=== PATIENT | female | born 1995 | race Caucasian/White ===

== ENCOUNTER → 2016-09-25 | Outpatient (CLI) | payer MEDICAID ==
[~2016-09-25] MED LIST: DERMOPLAST SPRA56 GM TP; LAN-O-SOOTHE7 GM TP; PRENATAL VIT1 TAB PO; TYLENOL EXTRA500 M1 PO
== END | disposition home or self-care (01) ==
LOC: RAD.S 16:20
DX: Z36 Encounter for antenatal screening of mother (principal); Z3A.20 20 weeks gestation of pregnancy

== ENCOUNTER 2016-11-23 00:08 | Emergency (ER) | payer MEDICAID ==
--- NOTE | 2016-11-23 03:36 | ER ---
ADMIT: 11/23/2016 RM/LOC: ER [facility] MR#: [id number] [facility] [id number] DORETHA VARGHESE Janna KISHORE CASTELLON [address] [place] [address] Emergency Room Report SEX: F AGE: 21 : 1995 DATE: 11/23/2016 The patient is a 21-year-old 1, para 0, last menstrual period 05/03, complains of epigastric abdominal pain associated with eructations. Took two Tums without improvement. Exam remarkable for acutely uncomfortable, obviously female. heart tones 150. Tender epigastrium with no uterine contractions palpated. The patient received GI cocktail and Zofran 8 mg ODT with complete relief of symptoms. Recommended liquid antacids 15-30 mL q.i.d. p.r.n., frequent small meals, nothing 4 hours before going to bed. Follow up Dr. Ewing as scheduled next week. Mario Perea MD/ katelin JOB #: [id number] CC: Mario Perea MD, Attending Physician Rima Ewing MD, Family Physician Rima Ewing MD
[2017-02-10] MEDS ORDERED: LAN-O-SOOTHE7 GM TP (18:10)
[2017-02-10] MEDS ORDERED: DERMOPLAST SPRA56 GM TP (18:10)
[2017-02-10] MEDS ORDERED: PRENATAL VIT1 TAB PO (18:10)
[2017-02-10] MEDS ORDERED: TYLENOL EXTRA500 M1 PO (18:10)
== END 2016-11-23 00:50 | disposition home or self-care (01) ==
LOC: ER 00:08
DX: O99.613 Diseases of the digestive system complicating pregnancy, third trimester (principal); K21.9 Gastro-esophageal reflux disease without esophagitis; Z90.49 Acquired absence of other specified parts of digestive tract; Z88.6 Allergy status to analgesic agent

== ENCOUNTER 2017-01-12 17:00 | Outpatient (CLI) | payer MEDICAID ==
[2017-02-10] MEDS ORDERED: LAN-O-SOOTHE7 GM TP (18:10)
[2017-02-10] MEDS ORDERED: DERMOPLAST SPRA56 GM TP (18:10)
[2017-02-10] MEDS ORDERED: PRENATAL VIT1 TAB PO (18:10)
[2017-02-10] MEDS ORDERED: TYLENOL EXTRA500 M1 PO (18:10)
== END 2017-01-12 21:05 | disposition home or self-care (01) ==
LOC: 2LDRP 17:00 → BC 17:00
DX: O47.03 False labor before 37 completed weeks of gestation, third trimester (principal); Z3A.36 36 weeks gestation of pregnancy

== ENCOUNTER 2017-01-14 04:00 | Outpatient (CLI) | payer MEDICAID ==
[2017-02-10] MEDS ORDERED: DERMOPLAST SPRA56 GM TP (18:10)
[2017-02-10] MEDS ORDERED: TYLENOL EXTRA500 M1 PO (18:10)
[2017-02-10] MEDS ORDERED: PRENATAL VIT1 TAB PO (18:10)
[2017-02-10] MEDS ORDERED: LAN-O-SOOTHE7 GM TP (18:10)
== END 2017-01-14 05:03 | disposition home or self-care (01) ==
LOC: 2LDRP 04:00 → BC 04:00 → 2LDRP 04:21 → BC 05:03
DX: O26.853 Spotting complicating pregnancy, third trimester (principal); R10.9 Unspecified abdominal pain; Z3A.36 36 weeks gestation of pregnancy